=== PATIENT | male | born 2000 | race African-American/Black ===

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

== ENCOUNTER 2022-12-27 19:21 | Emergency (ER) | payer OTHER, SELFPAY ==
[2022-12-27] MEDS ORDERED: cefTRIAXone (ROCEPHIN) 500 MG VIAL ONE (22:41)
[2022-12-27] MEDS ORDERED: Sterile Water 10 ML ONE (22:42)
[2022-12-27] MEDS ORDERED: Doxycycline 100 MG CAP ONE (22:42)
[2022-12-27 23:07] LABS: Bilirubin Neg (Negative); Blood, Urine 25 (Negative); Clarity Slightly Cloudy (Clear); Glucose, Urine (Dipstick) Normal (Negative); Ketone, Urine Negative (Negative); Leukocyte 500 (Negative); Nitrite Negative (Negative); Protein, Urine (Dipstick) 30 mg/dl (Neg-Trace)
[2022-12-28 00:14] LABS: CAUTI Indications for Culture Dysuria,urgency,freq; RBC/HPF 0-3 HPF (0-3); Squamous Epithelial 0-3 HPF (0-3); WBC/HPF Greater than 50 HPF (0-3)
[2022-12-28 00:15] LABS: Bacteria/HPF 2+ HPF (None Seen)
[2022-12-28 00:16] LABS: Urine Culture Reflex Yes Yes
[2022-12-29 11:18] LABS: Chlam.trachomatis by PCR,Urine Not Detected (NotDetected); GC N.gonorrhoeae PCR,UrineVOID DETECTED (NotDetected)
== END 2022-12-27 23:41 | disposition home or self-care (01) ==
LOC: CSHERS 19:21
DX: N30.00 Acute cystitis without hematuria (principal)
CPT/HCPCS: 81001; 87086; 87491; 87591; 96372; 99284; J0696